=== PATIENT | female | born 1990 | race Caucasian/White ===

== ENCOUNTER 2016-06-13 08:18 | Emergency (ER) | payer MEDICAID ==
[~2016-06-13] VITALS: Wt 63.2 kg
[2016-06-13 08:58] LABS: ADD SCAN DIFF NO
[2016-06-13 09:03] LABS: BASOPHILS % 0.3 % (0.0-2.0); EOSINOPHILS # 0.1 10^3/ul (0.0-0.5); EOSINOPHILS % 1.2 % (0.0-7.0); HEMATOCRIT 37.7 % (37.0-47.0); HEMOGLOBIN 12.9 g/dl (12.0-16.0); LYMPHOCYTES # 2.4 10^3/ul (0.8-2.9); LYMPHOCYTES % 22.8 % (15.0-51.0); MEAN CORPUSCULAR HEMOGLOBIN 30.6 pg (29.0-33.0); MEAN CORPUSCULAR HGB CONC 34.2 g/dl (32.0-37.0); MEAN CORPUSCULAR VOLUME 89.5 fl (82.0-101.0); MEAN PLATELET VOLUME 10.3 fl (7.4-10.4); MONOCYTE # 0.7 10^3/ul (0.3-0.9); MONOCYTES % 6.9 % (0.0-11.0); NEUTROPHIL # 7.3 10^3/ul (1.6-7.5); NEUTROPHILS % 68.4 % (39.0-77.0); PLATELET COUNT 253 10^3/UL (140-415); RED BLOOD COUNT 4.21 10^6/ul (4.20-5.40); RED CELL DISTRIBUTION WIDTH 11.9 % (11.5-14.5); WHITE BLOOD COUNT 10.6 10^3/ul (4.8-10.8)
--- NOTE | 2016-06-13 09:23 | RADRPT ---
PROCEDURE: OBSTETRICAL ULTRASOUND WITH ENDOVAGINAL IMAGES CLINICAL INDICATION: Vaginal Bleed () TECHNIQUE: Multiple sonographic images of the pelvis were obtained utilizing a transabdominal and endovaginal technique. The images were reviewed on a PACS workstation. COMPARISON: None. LMP: 04/25/2016 FINDINGS: There is a single live intrauterine with heart rate of 129 beats per minute, mean sa c diameter of 2.00 cm, yolk sac, and crown-rump length of 0.62 cm which is consistent with a gestati onal age of 6 weeks, 5 days . The estimated date of delivery by ultrasound is 02/01/2017 . The estimated gestational age by LMP is 7 weeks, 0 days . The estimated date of delivery by LMP is 01/30/2017 . The right ovary measures 6.2 x 4.6 x 4.5 cm. The left ovary measures 2.3 x 1.4 x 1.8 cm. There is no rmal vascular flow in both ovaries. There is a 4.4 cm cystic lesion in the right ovary without significant peripheral vascular flow. There is mild pelvic free fluid. IMPRESSION: Single live intrauterine consistent with a gestational age of 6 weeks, 5 days . The estimated date of delivery is 02/01/2017 . Dating by ultrasound is within 2 days of dating by LMP. 4.4 cm cystic lesion in the right ovary is nonspecific and may be an enlarged follicle or hemorrhagi c/corpus luteal cyst. No subchorionic hemorrhages are identified. RPTAT: EE Physician Aramis Date Time Electronically viewed and signed by Physician Aramis on 06/13/2016 09:23 /
[2016-06-13 09:26] LABS: ADD UMIC YES; URINE BILIRUBIN (Dip) NEGATIVE (NEGATIVE); URINE BLOOD (Dip) 3+ (NEGATIVE); URINE COLOR LT. YELLOW (YELLOW); URINE GLUCOSE (Dip) NEGATIVE (NEGATIVE); URINE KETONES (Dip) NEGATIVE (NEGATIVE); URINE LEUKOCYTE ESTERASE (Dip) 2+ (NEGATIVE); URINE NITRITE (Dip) NEGATIVE (NEGATIVE); URINE TOTAL PROTEIN (Dip) NEGATIVE (NEGATIVE); URINE UROBILINOGEN (Dip) 0.2 E.U./dL (0.1-1.0)
[2016-06-13 09:36] LABS: BACTERIA,URINE MODERATE
[2016-06-13] MEDS ORDERED: NITR-58 PO (10:16)
--- NOTE | 2016-06-13 13:44 | ERD ---
ER Documentation Chief Complaint Date/Time DATE: 06/13/16 TIME: 13:42 Chief Complaint vag bleed since last night. llq abd pain and dysuria 6 wks preg HPI This is a 25-year-old female presents to the ER with vaginal bleeding that started last night. Patient is currently 6 weeks . A0. Patient is also complaining of left lower quadrant abdominal pain with dysuria. She denies any fevers or chills. She denies any flank pain. She denies any nausea vomiting or diarrhea. She denies any vaginal discharge. ROS 12 point review of systems was done, all negative except per HPI. Medications Home Meds Active Scripts Nitrofurantoin Monohyd Macrocr* (Macrobid*) 100 Mg Capsr, 100 MG PO BID for 7 Days, CAP Prov:BASIL BARBOSA 06/13/16 Allergies Allergies: Coded Allergies: No Known Allergy (Unverified , 05/18/13) PMhx/Soc Medical and Surgical Hx: pt denies Medical Hx, pt denies Surgical Hx Hx Alcohol Use: No Hx Substance Use: No Hx Tobacco Use: No Smoking Status: Never smoker Physical Exam Vitals Vital Signs Date Time Temp Pulse Resp B/P Pulse Ox O2 Delivery O2 Flow Rate FiO2 06/13/16 08:22 97.8 75 21 109/57 98 Physical Exam GENERAL: The patient is well developed and appropriate for usual state of health , in no apparent distress. HEENT: Atraumatic CHEST: Clear to auscultation bilaterally. There are no rales, wheezes or rhonchi. HEART: Regular rate and rhythm. No murmurs, clicks, rubs or gallops. ABDOMEN: Soft, nontender and nondistended. Good bowel sounds. No rebound or guarding. No gross peritonitis. No gross organomegaly or masses. No Corona sign or McBurney point tenderness. BACK: No midline or flank tenderness. NEURO: Alert and oriented. SKIN: The skin is warm and dry. Result Diagram: 06/13/16 0840 Results 24 hrs Laboratory Tests Test 06/13/16 08:40 06/13/16 08:45 White Blood Count 10.610^3/ul Red Blood Count 4.2110^6/ul Hemoglobin 12.9g/dl Hematocrit 37.7% Mean Corpuscular Volume 89.5fl Mean Corpuscular Hemoglobin 30.6pg Mean Corpuscular Hemoglobin Concent 34.2g/dl Red Cell Distribution Width 11.9% Platelet Count 72078^3/UL Mean Platelet Volume 10.3fl Neutrophils % 68.4% Lymphocytes % 22.8% Monocytes % 6.9% Eosinophils % 1.2% Basophils % 0.3% Nucleated Red Blood Cells % 0.0/100WBC Neutrophils # 7.310^3/ul Lymphocytes # 2.410^3/ul Monocytes # 0.710^3/ul Eosinophils # 0.110^3/ul Basophils # 0.010^3/ul Nucleated Red Blood Cells # 0.010^3/ul Beta HCG, Quantitative 65262.0mIU/ml Urine Color LT. YELLOW Urine Clarity CLEAR Urine pH 8.0 Urine Specific [place] 1.015 Urine Ketones NEGATIVE Urine Nitrite NEGATIVE Urine Bilirubin NEGATIVE Urine Urobilinogen 0.2 E.U./dL Urine Leukocyte Esterase 2+ Urine Microscopic RBC 2-5/HPF Urine Microscopic WBC 2-5/HPF Urine Epithelial Cells MODERATE Urine Bacteria MODERATE Urine Hemoglobin 3+ Urine Glucose NEGATIVE% Urine Total Protein NEGATIVE Procedures/MDM Differential diagnosis: Threatened , missed , incomplete , ectopic , molar , UTI, pyelonephritis: This is a 25- year-old female presents to the ER with vaginal bleeding. Patient does have a urinary tract infection she will be sent home with Macrobid. In regards to patient's bleeding she does have a cyst which may be hemorrhagic. At this time IUP appears to be normal. Patient needs to follow-up with her AB INITIO ETL DEVELOPER within 48 hours. Patient is blood type O positive and does not need RhoGam. Patient needs return to ER sooner if symptoms worsen. My medical decision making was shared with the patient she understands and agrees with plan. Departure Diagnosis: Primary Impression: UTI (urinary tract infection) Condition: Stable Patient Instructions: Understanding Urinary Tract Infections (UTIs) Additional Instructions: Llame al doctor MAANA y thony fabiola SHIVAM PARA DENTRO DE 1-2 LOWE.Dgale a la secretaria que nosotros le instruimos hacer esta shivam.Avise o llame si cardozo condicin se empeora antes de la shivam. Regresa aqui si peor o no mejor. BASIL BARBOSA June 13, 2016 13:44
== END 2016-06-13 10:30 | disposition home or self-care (01) ==
LOC: FTE 08:18
DX: O23.41 Unspecified infection of urinary tract in pregnancy, first trimester (principal); Z3A.01 Less than 8 weeks gestation of pregnancy
CPT/HCPCS: 36415; 76801; 76817; 81001; 81003; 84702; 85025; 86900; 86901

== ENCOUNTER 2016-06-16 19:01 | Emergency (ER) | payer MEDICAID ==
[~2016-06-16] VITALS: Ht 154.9 cm; Wt 63.0 kg
[~2016-06-16 19:01] MED LIST: NITR-58 PO
[2016-06-16 19:29] VITALS: Ht 154.9 cm; Wt 63.0 kg
[2016-06-16] MEDS ORDERED: SOD CHLORIDE 0.9% 1,000 ML IV STA (20:58)
[2016-06-16] MEDS ORDERED: METOCLOPRAMIDE 10 MG INJ IV ONE (21:00)
[2016-06-16 21:18] LABS: ADD UMIC YES; URINE BILIRUBIN (Dip) NEGATIVE (NEGATIVE); URINE BLOOD (Dip) 3+ (NEGATIVE); URINE COLOR LT. YELLOW (YELLOW); URINE GLUCOSE (Dip) NEGATIVE (NEGATIVE); URINE KETONES (Dip) NEGATIVE (NEGATIVE); URINE LEUKOCYTE ESTERASE (Dip) TRACE (NEGATIVE); URINE NITRITE (Dip) NEGATIVE (NEGATIVE); URINE TOTAL PROTEIN (Dip) NEGATIVE (NEGATIVE); URINE UROBILINOGEN (Dip) 0.2 E.U./dL (0.1-1.0)
[2016-06-16 21:32] LABS: BACTERIA,URINE MODERATE; SQUAMOUS EPITHELIAL CELL,UR MODERATE
[2016-06-16 21:43] LABS: ADD SCAN DIFF NO; BASOPHIL # 0.1 10^3/ul (0.0-0.1); BASOPHILS % 0.4 % (0.0-2.0); EOSINOPHILS # 0.1 10^3/ul (0.0-0.5); EOSINOPHILS % 0.8 % (0.0-7.0); HEMATOCRIT 37.7 % (37.0-47.0); HEMOGLOBIN 12.8 g/dl (12.0-16.0); LYMPHOCYTES # 3.7 10^3/ul (0.8-2.9); LYMPHOCYTES % 22.4 % (15.0-51.0); MEAN CORPUSCULAR VOLUME 91.3 fl (82.0-101.0); MEAN PLATELET VOLUME 10.5 fl (7.4-10.4); MONOCYTE # 1.3 10^3/ul (0.3-0.9); NEUTROPHIL # 11.2 10^3/ul (1.6-7.5); PLATELET COUNT 261 10^3/UL (140-415); RED BLOOD COUNT 4.13 10^6/ul (4.20-5.40); RED CELL DISTRIBUTION WIDTH 11.6 % (11.5-14.5); WHITE BLOOD COUNT 16.4 10^3/ul (4.8-10.8)
--- NOTE | 2016-06-16 22:05 | RADRPT ---
PROCEDURE: US OB. CLINICAL INDICATION: Vaginal bleeding TECHNIQUE: Transabdominal and transvaginal views of the pelvis are available for review. COMPARISON: 06/13/16 FINDINGS: There is a single intrauterine gestation with the crown-rump length measuring 1.1 cm, corresponding to a gestational age of 7 weeks and 1 day. The heart rate is noted at 144 bpm. There are multiple small hypoechoic areas adjacent to the gestational sac. There is a small amount of free fluid in the pelvis and adjacent to the head next. The right ovary is enlarged measuring 5.9 x 4.6 cm. There is a large 5.1 cm cyst in the right ovary . The left ovary measures 3.2 x 1.4 cm. There is normal Doppler flow in the ovaries. RPTAT: AA IMPRESSION: Single live intrauterine with an estimated gestational age of 7 weeks and 1 day, based on ultrasound measurements. Multiple new small areas of subchorionic hemorrhage. Large a 5.1 cm cyst in the right ovary with a small amount of free fluid. .Ki Schmidt MD, Date Time Electronically viewed and signed by .Ki Schmidt MD, on 06/16/2016 22:05 .S/
[2016-06-16 22:07] LABS: ALBUMIN 4.7 g/dl (3.3-4.9); ALBUMIN/GLOBULIN RATIO 1.51; BILIRUBIN,INDIRECT 0.3 mg/dl (0-1.1); BILIRUBIN,TOTAL 0.3 mg/dl (0.2-1.3); CALCIUM 9.5 mg/dl (8.4-10.2); CREATININE 0.42 mg/dl (0.44-1.00); POTASSIUM 3.6 mmol/L (3.5-5.1); TOTAL PROTEIN 7.8 g/dl (6.1-8.1)
[2016-06-16] MEDS ORDERED: ACET325T33 PO (23:05)
[2016-06-16] MEDS ORDERED: METO10TA92 PO (23:05)
--- NOTE | 2016-06-16 23:12 | ERD ---
ER Documentation Chief Complaint Date/Time DATE: 06/16/16 TIME: 23:09 Chief Complaint VAG BLEED SINCE THURSDAY 7WEEKS HPI 25-year-old female patient who is a presents to the ED complaining of vaginal bleeding that started 4 days ago and worsened in the last 2 days with blood clots. Reports that her last menses was on April 25, 2016. States that she has had to change at least 2 pads per day for the vaginal bleeding. Patient was seen here on June 13, 2016 for similar symptoms and was diagnosed with a urinary tract infection. Patient states that she has been taking her Macrobid without any interruption. Denies any fever, abdominal pain, chills, cough, rhinorrhea, chest pain, vaginal discharge, shortness of breath, diarrhea , constipation. ROS All systems reviewed and are negative except as per history of present illness. Medications Home Meds Active Scripts Acetaminophen* (Tylenol*) 325 Mg Tablet, 1 TAB PO Q6 Y for PAIN AND OR ELEVATED TEMP, #20 TAB Prov:JOAQUIN RUCKER PA-C 06/16/16 Metoclopramide* (Reglan*) 10 Mg Tablet, 10 MG PO Q6 Y for NAUSEA AND/OR VOMITING , #10 TAB Prov:JOAQUIN RUCKER PA-C 06/16/16 Nitrofurantoin Monohyd Macrocr* (Macrobid*) 100 Mg Capsr, 100 MG PO BID for 7 Days, CAP Prov:BASIL BARBOSA 06/13/16 Allergies Allergies: Coded Allergies: No Known Allergy (Unverified , 06/16/16) PMhx/Soc Medical and Surgical Hx: pt denies Medical Hx, pt denies Surgical Hx Hx Alcohol Use: No Hx Substance Use: No Hx Tobacco Use: No Smoking Status: Never smoker Physical Exam Vitals Vital Signs Date Time Temp Pulse Resp B/P Pulse Ox O2 Delivery O2 Flow Rate FiO2 06/16/16 23:45 98.1 78 18 105/61 100 06/16/16 19:29 97.7 77 18 100/56 100 Physical Exam Const: Stu-sbg-kfqulcusu, well-nourished. In no acute distress. Head: Atraumatic, normocephalic Eyes: Normal Conjunctiva without injection. No purulent discharge. ENT: Normal external ear, nose. Moist oropharynx without tonsillar exudates. Non -erythematous pharynx. Uvula midline. No drooling. No trismus. Neck: No cervical midline tenderness. Full range of motion. No meningismus. No cervical lymphadenopathy. No JVD. Resp: Clear to auscultation bilaterally. No wheezing, rhonchi, rales, or crackles. No accessory muscle use. No retractions. Cardio: Regular rate and rhythm. No murmurs, rubs or gallops. Abd: Soft, nontender to palpation, non distended. Normal bowel sounds. No palpable masses. No rebound tenderness. No guarding. Negative McBurney's point. Negative psoas sign. Negative obturator sign. Skin: No petechiae or rashes Back: No midline tenderness. No CVA tenderness. Ext: No cyanosis, or edema. Neur: Awake and alert. Normal gait. Normal coordination. Psych: Normal Mood and Affect Result Diagram: 06/16/16210706/16/162107 Results 24 hrs Laboratory Tests Test 06/16/16 21:05 06/16/16 21:08 Urine Color LT. YELLOW Urine Clarity SLIGHTLY CLOUDY Urine pH 6.0 Urine Specific [place] 1.010 Urine Ketones NEGATIVE Urine Nitrite NEGATIVE Urine Bilirubin NEGATIVE Urine Urobilinogen 0.2 E.U./dL Urine Leukocyte Esterase TRACE Urine Microscopic RBC 2-5/HPF Urine Microscopic WBC 5-10/HPF Urine Squamous Epithelial Cells MODERATE Urine Bacteria MODERATE Urine Hemoglobin 3+ Urine Glucose NEGATIVE% Urine Total Protein NEGATIVE White Blood Count 16.410^3/ul Red Blood Count 4.1310^6/ul Hemoglobin 12.8g/dl Hematocrit 37.7% Mean Corpuscular Volume 91.3fl Mean Corpuscular Hemoglobin 31.0pg Mean Corpuscular Hemoglobin Concent 34.0g/dl Red Cell Distribution Width 11.6% Platelet Count 19718^3/UL Mean Platelet Volume 10.5fl Neutrophils % 68.0% Lymphocytes % 22.4% Monocytes % 8.0% Eosinophils % 0.8% Basophils % 0.4% Nucleated Red Blood Cells % 0.0/100WBC Neutrophils # 11.210^3/ul Lymphocytes # 3.710^3/ul Monocytes # 1.310^3/ul Eosinophils # 0.110^3/ul Basophils # 0.110^3/ul Nucleated Red Blood Cells # 0.010^3/ul Sodium Level 135mmol/L Potassium Level 3.6mmol/L Chloride Level 102mmol/L Carbon Dioxide Level 25mmol/L Anion Gap 12 Blood Urea Nitrogen 3mg/dl Creatinine 0.42mg/dl Glucose Level 80mg/dl Calcium Level 9.5mg/dl Total Bilirubin 0.3mg/dl Direct Bilirubin 0.00mg/dl Indirect Bilirubin 0.3mg/dl Aspartate Amino Transf (AST/SGOT) 27IU/L Alanine Aminotransferase (ALT/SGPT) 53IU/L Alkaline Phosphatase 66IU/L Total Protein 7.8g/dl Albumin 4.7g/dl Globulin 3.10g/dl Albumin/Globulin Ratio 1.51 Beta HCG, Quantitative 780384.0mIU/ml Current Medications Medications (Trade) Dose Ordered Sig/Johana Route PRN Reason Start Time Stop Time Status Last Admin Dose Admin Sodium Chloride (NS) 1,000 ml @ 1,000 mls/hr Q1H STAT IV 06/16/16 20:58 06/16/16 21:57 DC 06/16/16 21:10 Metoclopramide HCl (Reglan) 10 mg ONCE ONCE IV 06/16/16 21:00 06/16/16 21:01 DC 06/16/16 21:09 Procedures/MDM 25-year-old female patient who is a presents the ED complaining of vaginal bleeding that started 4 days ago and worsened in last 2 days. Patient is afebrile and nontoxic-appearing. Patient's normal vital signs. An ultrasound , beta-hCG, CBC, type and RH, UA was ordered to evaluate patient. CBC: No evidence of severe infection or anemia Urine: No elevation in nitrites, leukocyte esterase, hematuria. No evidence of UTI Rh: O positive. No indication for Rhogam at this time. beta Hc,393 on June 13, 2016 has increased to 135,000 PROCEDURE: US OB. CLINICAL INDICATION: Vaginal bleeding TECHNIQUE: Transabdominal and transvaginal views of the pelvis are available for review. COMPARISON: 06/13/16 FINDINGS: There is a single intrauterine gestation with the crown-rump length measuring 1.1 cm, corresponding to a gestational age of 7 weeks and 1 day. The heart rate is noted at 144 bpm. There are multiple small hypoechoic areas adjacent to the gestational sac. There is a small amount of free fluid in the pelvis and adjacent to the head next. The right ovary is enlarged measuring 5.9 x 4.6 cm. There is a large 5.1 cm cyst in the right ovary. The left ovary measures 3.2 x 1.4 cm. There is normal Doppler flow in the ovaries. RPTAT: AA IMPRESSION: Single live intrauterine with an estimated gestational age of 7 weeks and 1 day, based on ultrasound measurements. Multiple new small areas of subchorionic hemorrhage. Large a 5.1 cm cyst in the right ovary with a small amount of free fluid. Patient has a single live intrauterine estimated to be 7 weeks and 1 day. Multiple new small areas of subchorionic hemorrhage likely the cause of patient's vaginal bleeding during the . She also has a 5 cm cyst on the right ovary. Patient's bleeding symptoms have stabilized while in the department. Low suspicion for symptomatic anemia, ectopic , sepsis, PID, appendicitis, ovarian torsion, tubo-ovarian abscess, surgical abdomen, or other emergent conditions. Patient was educated that there is a risk for threatened . Discharge medications: Tylenol, Reglan. Continue taking Macrobid. Patient to follow up with CLINICAL RESEARCH NURSE COORDINATOR in 2 days for further evaluation and treatment. Patient is to return sooner to the ED for any worsening symptoms. Patient's questions were answered. Patient understood and agreed with discharge plan. Departure Diagnosis: Primary Impression: Vaginal bleeding in patient at less than 20 weeks ges... Additional Impression: Nausea and vomiting during Condition: Stable Patient Instructions: Bleeding During Early , Hyperemesis Gravidarum Referrals: [facility] () [place] se salas hecho un examen mdico de control que le indica que no est en fabiola condicin que requiera tratamiento urgente en el Departamento de Emergencia. Un estudio ms profundo y el tratamiento de cardozo condicin pueden esperar sin ningn riesgo hasta que usted sea atendida/o en el consultorio de cardozo mdico o fabiola cl landry. Es responsabilidad suya arreglar fabiola shivam para el seguimiento del jaylon. MANEJO DE CONDICIONES NO URGENTES EN EL FUTURO 1) Si usted tiene un mdico de atencin primaria: Usted debera llamar a cardozo mdico de atencin primaria antes de venir al departamento de emergencia. Despus de las horas de consultorio, cardozo doctor o cardozo asociado/a est disponible por telfono. El mdico o enfermero de tracie en el servicio telefnico puede asesorarle por mariela medio para atender el problema, o jaylon contrario se puede programar fabiola shivam. 2) Si usted no tiene un mdico de atencin primaria: Llame al mdico o clnica de referencia que aparece abajo kamala las horas de consultorio para hacer fabiola shivam para que le vean. CLINICAS: [facility] [phone] [facility] [phone] [facility] [phone] [facility] [place] [phone] [facility] [phone] [address] [facility]. [phone] [facility] () Usted se salas hecho un examen mdico de control que le indica que no est en fabiola condicin que requiera tratamiento urgente en el Departamento de Emergencia. Un estudio ms profundo y el tratamiento de cardozo condicin pueden esperar sin ningn riesgo hasta que usted sea atendida/o en el consultorio de cardozo mdico o fabiola cl landry. Es responsabilidad suya arreglar fabiola shivam para el seguimiento del jaylon. MANEJO DE CONDICIONES NO URGENTES EN EL FUTURO 1) Si usted tiene un mdico de atencin primaria: Usted debera llamar a cardozo mdico de atencin primaria antes de venir al departamento de emergencia. Despus de las horas de consultorio, cardozo doctor o cardozo asociado/a est disponible por telfono. El mdico o enfermero de tracie en el servicio telefnico puede asesorarle por mariela medio para atender el problema, o jaylon contrario se puede programar fabiola shivam. 2) Si usted no tiene un mdico de atencin primaria: Llame al mdico o condado institucions de referencia que aparece abajo kamala las horas de consultorio para hacer fabiola shivam para que le vean. SI USTED NO PUEDE PAGAR PARA KLARISSA UN MEDICO puede ir a: [facility] [address] [place] [address] [facility] [address] [place] [address] [facility] [address] [place] [address] [facility] [address] [place], [place] [phone] CLINICAL RESEARCH NURSE COORDIN[place] [address] [facility] [address] [place], [place] [phone] OFFICE FAX QASIM HENDRICKS [address] [place], [place] [phone] DR. QUINN MARQUEZ [address] [place], [place] [phone] ASHLEE GILANKIT [id number] [address] [facility], [address] [place] [address] RICHARD DOAN [address] [place] [phone] [facility] [address] [place] [address] [facility] [phone] - [address], [place] [address] [address] WRIGHT, CHRISTOS [address] [facility] [address], [place] [address] DR MAYA, FARID [address] [facility] [place] [address] [facility] Hours: 8:00 am - 5:00 pm Additional Instructions: Llame al obstetrica doctor MAANA y thony fabiola SHIVAM PARA DENTRO DE 2-3 LOWE.D gale a la secretaria que nosotros le instruimos hacer esta shivam.Avise o llame si cardozo condicin se empeora antes de la shivam. Regresa aqui si peor o no mejor. JOAQUIN RUCKER PA-C June 16, 2016 23:12
[2016-06-16 23:45] VITALS: BP 105/61; PULSE 78; RESP 18; TEMP 98.1
== END 2016-06-17 | disposition home or self-care (01) ==
LOC: FTE 19:01
DX: O20.9 Hemorrhage in early pregnancy, unspecified (principal); O21.9 Vomiting of pregnancy, unspecified; Z3A.01 Less than 8 weeks gestation of pregnancy
CPT/HCPCS: 36415; 76801; 76817; 80053; 81001; 84702; 85025; 86900; 86901; 96374; J2765; J7030; Z7502; 81003

== ENCOUNTER 2016-10-04 17:24 | Outpatient (CLI) | payer MEDICAID ==
[~2016-10-04] VITALS: Ht 152.4 cm; Wt 66.6 kg
[~2016-10-04 17:24] MED LIST changes: +ACET325T33 PO; +ACET500C5 PO; +AZIT250T94 PO; +D-ME473S18 PO; +METO10TA92 PO
[2016-10-04 19:01] VITALS: BP 110/63; PULSE 76; RESP 20
[2016-10-04 19:22] VITALS: Ht 152.4 cm; Wt 66.6 kg
[2016-10-04] MEDS ORDERED: PRENAT PO (19:24)
[2016-10-04] MEDS ORDERED: DOCO100C PO (19:24)
[2016-10-04 20:10] LABS: ADD UMIC YES; UR ASCORBIC ACID NEGATIVE (NEGATIVE); UR BILIRUBIN (Dip) NEGATIVE (NEGATIVE); UR BLOOD (Dip) 2+ mg/dL (NEGATIVE); UR CLARITY CLEAR (CLEAR); UR COLOR STRAW (YELLOW); UR GLUCOSE (Dip) NEGATIVE (NEGATIVE); UR KETONES (Dip) NEGATIVE (NEGATIVE); UR LEUKOCYTE ESTERASE (Dip) 3+ Leu/ul (NEGATIVE); UR NITRITE (Dip) NEGATIVE (NEGATIVE); UR RBC 0 /HPF (0-5); UR SPECIFIC GRAVITY (Dip) 1.001 (1.003-1.030); UR TOTAL PROTEIN (Dip) NEGATIVE (NEGATIVE); UR UROBILINOGEN (Dip) NEGATIVE (NEGATIVE)
--- NOTE | 2016-10-04 20:36 | RADRPT ---
PROCEDURE: Obstetrical ultrasound CLINICAL INDICATION: . OB ultrasound with fluid volume assessment. TECHNIQUE: Obstetrical ultrasound of the uterus for fluid volume assessment. Transabdomi nal imaging of the uterus was performed. COMPARISON: 09/15/2016 FINDINGS: The amniotic fluid index equals approximately 12.0 cm. heart rate: 139 Beats per minute. Presentation: Breech Placenta is posterior without evidence of abruption. IMPRESSION: Amniotic fluid index equals 12.0 cm. Breech presentation. No evidence of abruption is seen. RPTAT: AADD .Dante Lovelace MD, Date Time Electronically viewed and signed by .Dante Lovelace MD, on 10/04/2016 20:36 .B/
--- NOTE | 2016-10-04 21:08 | PN ---
Triage Information Date/Time Reason for visit: Postcoital bleeding Weeks of Gestation Patient is a 23 weeks of gestation who presents with postcoital bleeding /Para Diabetes: none Hypertention: none Objective Vital Signs Date Time Temp Pulse Resp B/P Pulse Ox O2 Delivery O2 Flow Rate FiO2 10/04/16 19:01 98.7 76 20 110/63 Room Air Results/Medications Results 24 hrs Laboratory Tests Test 10/04/16 19:00 Urine Color STRAW Urine Clarity CLEAR Urine pH 7.0 Urine Specific [place] 1.001 L Urine Ketones NEGATIVE Urine Nitrite NEGATIVE Urine Bilirubin NEGATIVE Urine Urobilinogen NEGATIVE Urine Leukocyte Esterase 3+ H Urine Microscopic RBC 0 Urine Microscopic WBC 1 Urine Hemoglobin 2+ H Urine Glucose NEGATIVE Urine Total Protein NEGATIVE Imaging Results PROCEDURE: Obstetrical ultrasound CLINICAL INDICATION: . OB ultrasound with fluid volume assessment. TECHNIQUE: Obstetrical ultrasound of the uterus for fluid volume assessment. Transabdominal imaging of the uterus was performed. COMPARISON: 09/15/2016 FINDINGS: The amniotic fluid index equals approximately 12.0 cm. heart rate: 139 Beats per minute. Presentation: Breech Placenta is posterior without evidence of abruption. IMPRESSION: Amniotic fluid index equals 12.0 cm. Breech presentation. No evidence of abruption is seen. RPTAT: AADD .Dante Lovelace MD, MD Date Time Electronically viewed and signed by .Dante Lovelace MD, on 10/04/2016 20:36 .B/ CC: NATHAN CHEN MD Disposition: Discharge Assessment/Plan UA +3+ leukocyte Prescription for Macrobid was given Patient was instructed to follow-up with her ENGINE MANAGER in 2-3 days NATHAN CHEN MD Oct 04, 2016 21:08
--- NOTE | 2016-10-05 02:42 | TRIAGE ---
OB Triage Datetime Report Generated by CPN: 10/05/2016 02:42 Datetime: 10/04/2016 21:37 Stage of : OB Triage Temperature Route: Oral Labor Evaluation Frequency: None noted or palpated Monitor Mode: External Resting Tone Kenner: Relaxed Comments: Pt reports positive movt. Pain Assessment Pain Scale: 0 Pain Presence: None/Denies Pain Type: N/A Datetime: 10/04/2016 21:20 Stage of : OB Triage Datetime: 10/04/2016 21:00 Stage of : OB Triage Labor Evaluation Frequency: None noted or palpated Monitor Mode: External Resting Tone Kenner: Relaxed Datetime: 10/04/2016 20:00 Stage of : OB Triage Labor Evaluation Frequency: None noted or palpated Monitor Mode: External Resting Tone Kenner: Relaxed Datetime: 10/04/2016 19:17 Assessment Type: Triage Maternal Assessment Level of Consciousness: Fully Conscious DTR's/Clonus: DTRs 2+; No Clonus Headache: Denies Blurred Vision: No Respiratory Effort: Unlabored; Regular Rhythm; Equal Expansion Breath Sounds, Left: Clear and Equal Breath Sounds, Right: Clear and Equal Nausea/Vomiting: Denies RUQ Epigastric Pain: Denies Lower Extremities Edema: None Degree: None Upper Extremities Edema: None Degree: None Facial Edema: None Fall Risk Assessment History of Falling: (0) No Secondary Diagnosis: (0) No Ambulatory Aid: (0) Bedrest/Nurse Assist IV Therapy: (0) No Gait: (0) Normal/Bedrest/Immobile Mental Status: (0) Oriented to Own Ability Fall Score: 0 Fall Risk Score Definition: No Risk: No action required Datetime: 10/04/2016 19:15 Stage of : OB Triage Datetime: 10/04/2016 19:13 Stage of : OB Triage Datetime: 10/04/2016 18:40 Labor Evaluation Frequency: 0 Monitor Mode: External Resting Tone Kenner: Relaxed Heart Rate FHR Baseline Rate: 140 Monitor Mode: External US Datetime: 10/04/2016 18:26 Stage of : OB Triage Assessment Type: Triage Maternal Assessment Level of Consciousness: Fully Conscious DTR's/Clonus: DTRs 2+; No Clonus Headache: Denies Blurred Vision: No Respiratory Effort: Unlabored; Regular Rhythm Breath Sounds, Left: Clear and Equal Breath Sounds, Right: Clear and Equal Nausea/Vomiting: Denies RUQ Epigastric Pain: Denies Lower Extremities Edema: None Degree: None Upper Extremities Edema: None Degree: None Facial Edema: None Temperature Route: Oral Fall Risk Assessment History of Falling: (0) No Secondary Diagnosis: (0) No Ambulatory Aid: (0) Bedrest/Nurse Assist IV Therapy: (0) No Gait: (0) Normal/Bedrest/Immobile Mental Status: (0) Oriented to Own Ability Fall Score: 0 Fall Risk Score Definition: No Risk: No action required Labor Evaluation Frequency: 0 Monitor Mode: External Pattern: Normal: <= 5 Contractions in 10 Minutes Resting Tone Kenner: Relaxed Heart Rate FHR Baseline Rate: 130 Monitor Mode: External US FHR Baseline Changes: No Baseline Change Variability: Moderate 6-25 bpm Decelerations: None Category: Category I (Annotations: EGA 23 WKS) Datetime: 10/04/2016 18:24 Time of Arrival: 10/04/2016 17:15 EGA: 23.1 Chief Complaint: PT HAD VAGINAL BLEDING POST SEXUAL INTERCOURSE AT6 AM TODAY AND NOTICED SOME BLOO D Movement: Present Contractions: Denies/Absent Rupture of Membranes: Denies Vaginal Discharge: Denies Recent Sexual Intercouse: Yes Abdominal Trauma: Not Applicable Patient Complaints: Other Time Provider Notified: 10/04/2016 19:13 Provider Notified: Initial Plan: EFRosendo,V/S
== END 2016-10-04 21:43 | disposition home or self-care (01) ==
LOC: OBT 17:24 → L-D 17:25 → OBT 21:43
PROVIDERS: ATTEND Obstetrics & Gynecology
DX: O46.8X2 Other antepartum hemorrhage, second trimester (principal); Z3A.23 23 weeks gestation of pregnancy
CPT/HCPCS: 76815; 81001; G0463

== ENCOUNTER 2016-11-25 16:05 | Outpatient (CLI) | payer MEDICAID ==
[~2016-11-25] VITALS: Ht 152.4 cm; Wt 69.1 kg
[~2016-11-25 16:05] MED LIST changes: -ACET325T33 PO; -ACET500C5 PO; -AZIT250T94 PO; -D-ME473S18 PO; +DOCO100C PO; -METO10TA92 PO; -NITR-58 PO; +PRENAT PO
[2016-11-25 18:17] VITALS: BP 102/66; PULSE 80; RESP 18
[2016-11-25] MEDS ORDERED: FERR256T PO (18:19)
[2016-11-25] MEDS ORDERED: FOL8 PO (18:19)
--- NOTE | 2016-11-25 18:19 | RADRPT ---
PROCEDURE: US OB biophysical profile. Ultrasound cervix CLINICAL INDICATION: decreased movements, leaking fluid TECHNIQUE: Multiple sonographic images of the pelvis were obtained. In addition, transvaginal matthew ges of the cervix were obtained. The images were reviewed on a PACS workstation. COMPARISON: US PELVIS 10/04/2016 FINDINGS: There is a single viable intrauterine gestation. Cardiac activity is present with 139 beats per min jon. There is a breech, head is maternal left presentation. The placenta is posterior. There is no evidence of placental abruption. There is a normal amount of amniotic fluid with an MIKE = 15.7 cm. The cervix measures 2.2 cm in length. Biophysical profile: movement 2/2 tone 2/2. breathing 2/2 MIKE 2/2 Total 09/16 RPTAT: AA . IMPRESSION: Normal biophysical profile. Cervix measures 2.2 cm in length. .Ki Schmidt MD, MD Date Time Electronically viewed and signed by .Ki Schmidt MD, MD on 11/25/2016 18:18 .S/
--- NOTE | 2016-11-25 18:58 | PN ---
Triage Information Date/Time Reason for visit: SROM Weeks of Gestation 30+ /Para 1/0 Diabetes: none Hypertention: none Objective Vital Signs Date Time Temp Pulse Resp B/P Pulse Ox O2 Delivery O2 Flow Rate FiO2 11/25/16 18:17 98.3 80 18 102/66 97 Room Air Heart Rate: 140's Contractions: None Results/Medications Results 24 hrs Laboratory Tests Test 11/25/16 17:40 Membranes Rupture NEGATIVE Fibronectin NEGATIVE Disposition: Discharge Assessment/Plan FFN neg ROM (-) CXL 2.2 Discharged with precautions Return in 2 days for CXL and BPP CARLEE WISEMAN M.D. Nov 25, 2016 18:58
--- NOTE | 2016-11-25 19:06 | TRIAGE ---
OB Triage Datetime Report Generated by CPN: 11/25/2016 19:05 Datetime: 11/25/2016 18:49 Labor Evaluation Frequency: 0 Monitor Mode: External Pattern: Normal: <= 5 Contractions in 10 Minutes Resting Tone [place]: Relaxed Heart Rate FHR Baseline Rate: 130 Monitor Mode: External US FHR Baseline Changes: No Baseline Change Variability: Moderate 6-25 bpm Accelerations: 15X15 Decelerations: None Datetime: 11/25/2016 18:01 Labor Evaluation Frequency: 0 Monitor Mode: External Pattern: Normal: <= 5 Contractions in 10 Minutes Resting Tone [place]: Relaxed Heart Rate FHR Baseline Rate: 125 Monitor Mode: External US FHR Baseline Changes: No Baseline Change Variability: Moderate 6-25 bpm Accelerations: 15X15 Decelerations: None Datetime: 11/25/2016 17:45 Vaginal Exam Dilatation (cms): 0.0 Effacement (%): 0 Station: -4 Exam By: CK Vaginal Bleeding: None Cervix, Consistency: Firm Cervix, Position: Midposition Presentation 'A': Unable to Assess Datetime: 11/25/2016 17:42 Nitrazine: Negative Datetime: 11/25/2016 17:01 Labor Evaluation Frequency: 0 Monitor Mode: External Pattern: Normal: <= 5 Contractions in 10 Minutes Resting Tone [place]: Relaxed Heart Rate FHR Baseline Rate: 125 Monitor Mode: External US FHR Baseline Changes: No Baseline Change Variability: Moderate 6-25 bpm Accelerations: 15X15 Decelerations: None Datetime: 11/25/2016 16:57 Time of Arrival: 11/25/2016 16:00 EGA: 30.4 Arrived By: Ambulatory Arrived From: Home Chief Complaint: LEAKING OF FLUIDS -STARTED ON THURSDAY, PT WORE A PAD ON THURSDAY AND THURSDAY, BUT D ID NOT NEED ONE TODAY Movement: Present Contractions: Denies/Absent Rupture of Membranes: Unsure Vaginal Bleeding: Normal Show Vaginal Discharge: Denies Recent Sexual Intercouse: Denies Abdominal Trauma: Not Applicable Patient Complaints: None Time Provider Notified: 11/25/2016 17:20 Provider Notified: DR. SERRANO Initial Plan: EFM x2 Datetime: 11/25/2016 16:38 Stage of : OB Triage Assessment Type: Triage Maternal Assessment Level of Consciousness: Fully Conscious Headache: Denies Blurred Vision: No Respiratory Effort: Unlabored; Regular Rhythm; Equal Expansion Breath Sounds, Left: Clear and Equal Breath Sounds, Right: Clear and Equal Nausea/Vomiting: Denies RUQ Epigastric Pain: Denies Lower Extremities Edema: None Degree: None Upper Extremities Edema: None Degree: None Facial Edema: None Temperature Route: Oral Fall Risk Assessment History of Falling: (0) No Secondary Diagnosis: (0) No Ambulatory Aid: (0) Bedrest/Nurse Assist IV Therapy: (0) No Gait: (0) Normal/Bedrest/Immobile Mental Status: (0) Oriented to Own Ability Fall Score: 0 Fall Risk Score Definition: No Risk: No action required Pain Assessment Pain Scale: 0 Pain Presence: None/Denies Pain Type: N/A Datetime: 10/04/2016 19:17 Fall Score: 0 Fall Risk Score Definition: No Risk: No action required Datetime: 10/04/2016 18:26 Fall Score: 0 Fall Risk Score Definition: No Risk: No action required Datetime: 10/04/2016 18:24 EGA: 23.1
== END 2016-11-25 19:42 | disposition home or self-care (01) ==
LOC: OBT 16:05 → L-D 16:07 → OBT 19:42
PROVIDERS: ATTEND Obstetrics & Gynecology
DX: O42.913 Preterm premature rupture of membranes, unspecified as to length of time between rupture and onset of labor, third trimester (principal); Z3A.30 30 weeks gestation of pregnancy
CPT/HCPCS: 76817; 76818; 82731; 84112; Z7500; G0463

== ENCOUNTER 2016-11-27 16:42 | Outpatient (CLI) | payer MEDICAID ==
[~2016-11-27] VITALS: Ht 152.4 cm; Wt 70.6 kg
[~2016-11-27 16:42] MED LIST changes: +FERR256T PO; +FOL8 PO
[2016-11-27 16:53] VITALS: Ht 152.4 cm; Wt 70.6 kg
[2016-11-27 16:54] VITALS: BP 107/60; PULSE 83
--- NOTE | 2016-11-27 17:37 | RADRPT ---
PROCEDURE: US OB biophysical profile. CLINICAL INDICATION: evaluation TECHNIQUE: Multiple sonographic images of the pelvis were obtained. The images were reviewed on a PACS workstation. COMPARISON: No prior studies are available for comparison. FINDINGS: There is a single viable intrauterine gestation. Cardiac activity is present with 136 beats per min jon. There is a breech presentation. The placenta is posterior. There is no evidence of placental abruption. There is a normal amount of amniotic fluid with an MIKE = 12.2 cm. Biophysical profile: movement 2/2 tone 2/2. breathing 2/2 MIKE 2/2 Total 09/16 RPTAT: AA . IMPRESSION: Normal biophysical profile. Physician Aramis Date Time Electronically viewed and signed by Physician Aramis on 11/27/2016 17:37 RA/
--- NOTE | 2016-11-27 18:37 | CONS ---
Date/Time of Note Date/Time of Note DATE: 11/27/16 TIME: 18:27 Consultation Date/Type/Reason Admit Date/Time November 27, 2016 OB triage consult This patient is a 26 years old 1 para 0 with estimated date of confinement of January 30, 2017 which makes her 30 weeks and 6 days today. She returned to the clinic due to possibility of a rupture of membrane and to rule out labor On examination she is a well-developed well-nourished patient in her 31 week gestation her general vital signs are within normal limits with blood pressure of 107/60 , pulse rate of 83, respiration 18 and temperature 98.3,,. Abdomen is fairly soft . very rare contractions, heart tone is normal with good variability and occasional acceleration no decelerations. Constitutional: No chills, No diaphoresis, No disoriented, No febrile, No improved, No no complaints, No other, No poor po, No requiring IVF, No requiring O2 Eyes: No discharge, No no complaints, No other, No pain, No redness, No visual change ENT: No bleeding, No congestion, No discharge, No dysphagia, No no complaints, No other, No pain, No sore throat Respiratory: No cough, No no complaints, No other, No pain, No pleuritic pain, No shortness of breath, No sputum, No wheezing Cardiovascular: No chest pain, No edema, No lightheadedness, No no complaints, No orthopenea, No other, No palpitations, No paroxysmal nocturnal dyspnea Gastrointestinal: other (Due to lack of contractions pelvic examination was not performed), No blood, No constipation, No decreased appetite, No diarrhea, No flatus, No nausea, No no complaints, No pain, No passing stool, No vomiting Musculoskeletal: No back pain, No bone/joint pain, No neck pain, No no complaints, No other, No restricted range of motion, No swelling Skin: skin lesions (No erythema of the palm of the hand or any other parts of the body), No bruising, No erythema, No laceration, No no complaints, No other, No pruritis, No rash Neurologic: other (Knee-jerk reflexes are normal), No confusion, No dizziness, No focal-weakness, No headache, No no complaints , No seizure, No syncope Endocrine: No dry skin, No no complaints, No other, No polydypsia, No polyuria , No temp intolerance Additional Comments . We did an ultrasound study report was a single viable intrauterine gestation with cardiac activity 136 bpm in breech presentation placenta was posterior with no evidence of abruption her amniotic fluid index was 12.2 cm biophysical profile 09/16 With these finding patient was discharged home with instruction to continue doing kick count and return to the clinic if any evidence of labor ,low movement or any vaginal bleeding. End of dictation thank you Social History Smoking Status: Never smoker Exam/Review of Systems Vital Signs Vitals Vital Signs Date Time Temp Pulse Resp B/P Pulse Ox O2 Delivery O2 Flow Rate FiO2 11/27/16 16:54 98.3 83 107/60 MERA MAYNARD MD Nov 27, 2016 18:37
== END 2016-11-27 18:09 | disposition home or self-care (01) ==
LOC: L-D 16:42 → OBT 16:42
PROVIDERS: ATTEND Obstetrics & Gynecology
DX: O42.913 Preterm premature rupture of membranes, unspecified as to length of time between rupture and onset of labor, third trimester (principal); Z3A.30 30 weeks gestation of pregnancy
CPT/HCPCS: 76818; Z7500; G0463

== ENCOUNTER 2016-12-17 19:05 | Outpatient (CLI) | payer MEDICAID ==
[~2016-12-17] VITALS: Ht 152.4 cm; Wt 72.2 kg
[~2016-12-17 19:05] MED LIST changes: -DOCO100C PO
[2016-12-17 19:21] VITALS: BP 101/56; PULSE 85; RESP 17; Ht 152.4 cm; Wt 72.2 kg
[2016-12-17] MEDS ORDERED: CALC600T5 PO (19:24)
[2016-12-17] MEDS ORDERED: PREN1TAB79 PO (19:24)
[2016-12-17] MEDS ORDERED: IRON1TAB78 PO (19:24)
--- NOTE | 2016-12-17 20:02 | RADRPT ---
PROCEDURE: OB ultrasound CLINICAL INDICATION: Decrease movement TECHNIQUE: Multiple transverse and longitudinal OB images of the pelvis were obtained. The images were reviewed on a high-resolution PACS workstation. COMPARISON: 11/27/2016 FINDINGS: A single live intrauterine is seen. The presentation is breech. The placenta is grade 2 a nd posterior in location. No evidence of placenta abruption or previa is seen. The heart rate is 146 beats per minute. The amniotic fluid index is 11.6 cm. movement 2 tone 2 breathing 2 Amniotic fluid 2 IMPRESSION: Biophysical profile of 09/16. RPTAT: HPNM Physician Mehul Date Time Electronically viewed and signed by Physician Mehul on 12/17/2016 20:02 /
--- NOTE | 2016-12-18 02:13 | TRIAGE ---
OB Triage Datetime Report Generated by CPN: 12/18/2016 02:12 Datetime: 12/17/2016 22:05 Stage of : OB Triage Labor Evaluation Frequency: NONE Monitor Mode: External Duration (sec)2399: NONE Resting Tone [place]: Relaxed Heart Rate FHR Baseline Rate: 125-135 Monitor Mode: External US Variability: Moderate 6-25 bpm Accelerations: 15X15 Decelerations: None Category: Category I Datetime: 12/17/2016 21:30 Monitor Mode: External US Datetime: 12/17/2016 21:07 Monitor Mode: External US Comments: LOC D/T PT'S FREQUENT POSITION CHANGE. Datetime: 12/17/2016 21:05 Stage of : OB Triage Labor Evaluation Frequency: NONE Monitor Mode: External Duration (sec)2399: NONE Resting Tone [place]: Relaxed Heart Rate FHR Baseline Rate: 135 Monitor Mode: External US Variability: Moderate 6-25 bpm Accelerations: 15X15 Decelerations: None Category: Category I Datetime: 12/17/2016 20:06 Monitor Mode: External US Datetime: 12/17/2016 19:57 Monitor Mode: External US Comments: PT REPORTED INCREASED MOVEMENT. Datetime: 12/17/2016 19:48 Stage of : OB Triage Labor Evaluation Frequency: NONE Monitor Mode: External Duration (sec)2399: NONE Resting Tone [place]: Relaxed Contraction Comments: ABDOMEN SOFT UPON PALPATION Heart Rate FHR Baseline Rate: 135 Monitor Mode: External US Variability: Moderate 6-25 bpm Accelerations: 15X15 Decelerations: None Category: Category I Datetime: 12/17/2016 19:15 Stage of : OB Triage Datetime: 12/17/2016 19:07 Contraction Comments: APPLIED Comments: APPLIED Datetime: 12/17/2016 19:05 Stage of : OB Triage Assessment Type: Triage Maternal Assessment Level of Consciousness: Fully Conscious DTR's/Clonus: DTRs 2+; No Clonus Headache: Denies Blurred Vision: No Respiratory Effort: Unlabored; Regular Rhythm; Equal Expansion Breath Sounds, Left: Clear and Equal Breath Sounds, Right: Clear and Equal Nausea/Vomiting: Denies RUQ Epigastric Pain: Denies Lower Extremities Edema: None Degree: None Upper Extremities Edema: None Degree: None Facial Edema: None Temperature Route: Oral Fall Risk Assessment History of Falling: (0) No Secondary Diagnosis: (0) No Ambulatory Aid: (0) Bedrest/Nurse Assist IV Therapy: (0) No Gait: (0) Normal/Bedrest/Immobile Mental Status: (0) Oriented to Own Ability Fall Score: 0 Fall Risk Score Definition: No Risk: No action required Pain Assessment Pain Scale: 0 Pain Presence: None/Denies Pain Type: N/A Datetime: 12/17/2016 19:00 Time of Arrival: 12/17/2016 19:00 EGA: 33.5 Arrived By: Wheelchair Arrived From: Home Chief Complaint: DECREASED MOVEMENT SINCE 7AM Movement: Present Contractions: Denies/Absent Vaginal Bleeding: None Patient Complaints: Other Time Provider Notified: 12/17/2016 19:15 Provider Notified: DR. BERNARD Initial Plan: EFM, CALL OB Datetime: 11/27/2016 18:01 Stage of : OB Triage Datetime: 11/27/2016 17:52 Labor Evaluation Frequency: 0 Monitor Mode: External Resting Tone [place]: Relaxed Heart Rate FHR Baseline Rate: 135 Monitor Mode: External US Variability: Moderate 6-25 bpm Accelerations: 10X10 Decelerations: None Category: Category I Pain Assessment Pain Scale: 0 Pain Presence: None/Denies Pain Type: N/A Pain Goal: 3 Pain Relief Measures: Comfort Measures Datetime: 11/27/2016 17:04 Stage of : OB Triage Datetime: 11/27/2016 16:50 Stage of : OB Triage Assessment Type: Triage Maternal Assessment Level of Consciousness: Fully Conscious DTR's/Clonus: DTRs 2+; No Clonus Headache: Denies Blurred Vision: No Respiratory Effort: Unlabored; Regular Rhythm; Equal Expansion Breath Sounds, Left: Clear and Equal Breath Sounds, Right: Clear and Equal Nausea/Vomiting: Denies RUQ Epigastric Pain: Denies Facial Edema: None Temperature Route: Axillary Fall Risk Assessment History of Falling: (0) No Secondary Diagnosis: (0) No Ambulatory Aid: (0) Bedrest/Nurse Assist IV Therapy: (0) No Gait: (0) Normal/Bedrest/Immobile Mental Status: (0) Oriented to Own Ability Fall Score: 0 Fall Risk Score Definition: No Risk: No action required Labor Evaluation Frequency: 0 Monitor Mode: External Resting Tone [place]: Relaxed Heart Rate FHR Baseline Rate: 125 Monitor Mode: External US Variability: Moderate 6-25 bpm Accelerations: 10X10 Decelerations: None Pain Assessment Pain Scale: 0 Pain Presence: None/Denies Pain Type: N/A Pain Goal: 3 Pain Relief Measures: Comfort Measures Datetime: 11/27/2016 16:48 Time of Arrival: 11/27/2016 16:36 EGA: 30.6 Arrived By: Ambulatory Arrived From: Home Chief Complaint: FOLLOW UP LEAKING 2 DAYS AGO, STATES NO MORE LEAKING JUST MUCUS DISCHARGE. DENIE S BLEEDING, OR UC'S Movement: Decreased Contractions: Denies/Absent Rupture of Membranes: Denies Vaginal Bleeding: None Vaginal Discharge: Present Recent Sexual Intercouse: Denies Abdominal Trauma: Not Applicable Patient Complaints: None Time Provider Notified: 11/27/2016 17:04 Provider Notified: [facility] Initial Plan: MONITOR, BPP/MIKE Datetime: 11/25/2016 16:57 EGA: 30.4 Datetime: 11/25/2016 16:38 Fall Score: 0 Fall Risk Score Definition: No Risk: No action required Datetime: 10/04/2016 19:17 Fall Score: 0 Fall Risk Score Definition: No Risk: No action required Datetime: 10/04/2016 18:26 Fall Score: 0 Fall Risk Score Definition: No Risk: No action required Datetime: 10/04/2016 18:24 EGA: 23.1
--- NOTE | 2016-12-18 06:33 | PN ---
Triage Information Date/Time December 18, 2016 Reason for visit: DFHR Weeks of Gestation 33 weeks and 5 days /Para 1 para 0 Diabetes: none Hypertention: none Additional information 26-year-old with IUP at 33 weeks and 5 days presented with complaint of decreased movement. She denies any leaking of fluid, vaginal bleeding or contractions. Objective Vital Signs Date Time Temp Pulse Resp B/P Pulse Ox O2 Delivery O2 Flow Rate FiO2 12/17/16 19:21 98.4 85 17 101/56 Room Air Heart Rate: 130's Contractions: None Exam General appearance: Alert and oriented 4 patient does not appear to be in any acute distress. Abdomen: Soft, gravid, fundal height consistent with gestational age. No abdominal tenderness, no uterine tenderness, no rigidity NST: Category 1 BPP: 09/16 MIKE: 11.6 Results/Medications Imaging Results PROCEDURE: OB ultrasound CLINICAL INDICATION: Decrease movement TECHNIQUE: Multiple transverse and longitudinal OB images of the pelvis were obtained. The images were reviewed on a high-resolution PACS workstation. COMPARISON: 11/27/2016 FINDINGS: A single live intrauterine is seen. The presentation is breech. The placenta is grade 2 and posterior in location. No evidence of placenta abruption or previa is seen. The heart rate is 146 beats per minute. The amniotic fluid index is 11.6 cm. movement 2 tone 2 breathing 2 Amniotic fluid 2 IMPRESSION: Biophysical profile of 09/16. RPTAT: HPNM Disposition: Discharge Assessment/Plan IUP at 33 weeks and 5 days movement testing reassuring DC home Follow-up in 24-48 hours with primary OB Patient was reassured Strict labor precaution and kick count discussed with the patient Patient reports has been feeling movement since she was in triage She verbalized understanding return to triage for any other complaints BITA BERNARD MD Dec 18, 2016 06:33
== END 2016-12-17 22:35 | disposition home or self-care (01) ==
LOC: OBT 19:05 → L-D 19:07 → OBT 22:35
PROVIDERS: ATTEND Obstetrics & Gynecology
DX: O36.8130 Decreased fetal movements, third trimester, not applicable or unspecified (principal); Z3A.33 33 weeks gestation of pregnancy
CPT/HCPCS: 76818; Z7500; G0463

== ENCOUNTER 2017-01-07 08:56 | Outpatient (CLI) | payer MEDICAID ==
[~2017-01-07] VITALS: Ht 154.9 cm; Wt 71.7 kg
[~2017-01-07 08:56] MED LIST changes: +CALC600T5 PO; -FOL8 PO; +PREN1TAB79 PO; -PRENAT PO
[2017-01-07 09:08] VITALS: Ht 154.9 cm; Wt 71.7 kg
[2017-01-07 09:09] VITALS: BP 102/58; PULSE 83; RESP 18
--- NOTE | 2017-01-07 10:54 | RADRPT ---
PROCEDURE: US OB biophysical profile. CLINICAL INDICATION: Leaking amniotic fluid. TECHNIQUE: Multiple sonographic images of the pelvis were obtained. The images were reviewed on a PACS workstation. COMPARISON: December 17, 2016 FINDINGS: There is a single live intrauterine , in breech presentation. A normal heart rate is identified measuring 139 beats per minute. The amniotic fluid index is within normal limits measurin g 9.5 cm. Biophysical profile: movement 2/2 tone 2/2. breathing 2/2 MIKE 2/2 Total 09/16 IMPRESSION: 1. Biophysical profile score of 8/8. 2. Single live intrauterine in breech presentation with normal heart rate of 139 bpm . 3. Normal amniotic fluid index of 9.5 cm. Previously this measured 11.6 cm Physician Anila Date Time Electronically viewed and signed by Physician Anila on 01/07/2017 10:53 MARY/
--- NOTE | 2017-01-07 11:41 | PN ---
Triage Information Date/Time 01/07/2017 Reason for visit: SROM Weeks of Gestation 36 weeks and 5/7 /Para Diabetes: none Hypertention: none Additional information 18-year-old with IUP at Questionable dates . 36 weeks and 5 days care at [facility] presented with complaint of leaking of fluid since 7: 30 AM. Per patient she suspected IUGR. She has an appointment with perinatologist today at 1:30 PM for growth ultrasound due to possible incorrect dating She denied any bleeding or decreased movement. Patient denies any other complaint. Reports occasional low back pain. Objective Vital Signs Date Time Temp Pulse Resp B/P Pulse Ox O2 Delivery O2 Flow Rate FiO2 01/07/17 09:09 98.0 83 18 102/58 96 Room Air Heart Rate: 130's Contractions: >10 Minutes Apart Exam Appearance: Alert and oriented 4. Patient does not appear to be in any acute distress. Abdomen: Soft, gravid, fundal height less than dates. Abdomen no tenderness, no rebound tenderness, no guarding, no rigidity Extremities: No calf tenderness, no click no edema, no cords palpable NST: Category 1 Occasional contraction seen on the monitor Results/Medications Results 24 hrs Laboratory Tests Test 01/07/17 09:20 Membranes Rupture NEGATIVE Disposition: Discharge Assessment/Plan IUP at 36 weeks and 5 days questionable dating, No evidence of PPROM or labor Suspected IUGR Normal MIKE Patient has an appointment for follow-up with perinatologist today for growth ultrasound rule out IUGR as well as appointment in 2 days with her OB clinic Discharge home Follow-up with maternal- medicine today as a scheduled for growth ultrasound rule out IUGR and follow-up plan and management of delivery time if noted to be IUGR. Follow-up with primary OB clinic in 2 days after today's ultrasound Strict labor precaution and kick count discussed Return to clinic as needed She verbalized understanding. all questions were answered BITA BERNARD MD Jan 07, 2017 11:41
--- NOTE | 2017-01-07 11:50 | TRIAGE ---
OB Triage Datetime Report Generated by CPN: 01/07/2017 11:50 Datetime: 01/07/2017 11:00 Stage of : OB Triage Maternal Assessment Level of Consciousness: Fully Conscious Labor Evaluation Frequency: 1UC/HR Monitor Mode: External Duration (sec)2399: 70 Quality: Mild Resting Tone [place]: Relaxed Heart Rate FHR Baseline Rate: 135 Monitor Mode: External US Variability: Moderate 6-25 bpm Accelerations: 15X15 Decelerations: None Pain Assessment Pain Scale: 0 Pain Goal: 3 Membrane Status: Intact Vaginal Bleeding: None Datetime: 01/07/2017 10:00 Stage of : OB Triage Maternal Assessment Level of Consciousness: Fully Conscious Labor Evaluation Frequency: NONE Monitor Mode: External Resting Tone [place]: Relaxed Heart Rate FHR Baseline Rate: 135 Monitor Mode: External US Variability: Moderate 6-25 bpm Accelerations: 15X15 Decelerations: None Category: Category I Pain Assessment Pain Scale: 0 Pain Goal: 3 Membrane Status: Intact Vaginal Bleeding: None Datetime: 01/07/2017 09:20 Vaginal Exam Dilatation (cms): 1.5 Effacement (%): 50 Station: -2 Exam By: MOISES Vaginal Bleeding: Scant Pool: Negative Nitrazine: Negative Cervix, Consistency: Moderate Cervix, Position: Midposition Datetime: 01/07/2017 09:05 Monitor Mode: External Monitor Mode: External US Datetime: 01/07/2017 09:02 Assessment Type: Triage Maternal Assessment Level of Consciousness: Fully Conscious DTR's/Clonus: DTRs 2+; No Clonus Headache: Denies Blurred Vision: No Respiratory Effort: Unlabored; Regular Rhythm; Equal Expansion Breath Sounds, Left: Clear and Equal Breath Sounds, Right: Clear and Equal Nausea/Vomiting: Denies RUQ Epigastric Pain: Denies Lower Extremities Edema: None Degree: None Upper Extremities Edema: None Degree: None Facial Edema: None Fall Risk Assessment History of Falling: (0) No Secondary Diagnosis: (0) No Ambulatory Aid: (0) Bedrest/Nurse Assist IV Therapy: (0) No Gait: (0) Normal/Bedrest/Immobile Mental Status: (0) Oriented to Own Ability Fall Score: 0 Fall Risk Score Definition: No Risk: No action required Datetime: 01/07/2017 09:00 Time of Arrival: 01/07/2017 08:51 EGA: 36.5 Arrived By: Ambulatory Arrived From: Home Chief Complaint: PT HERE C/O LEAKING Movement: Present Contractions: Irregular Rupture of Membranes: Unsure Vaginal Bleeding: None Abdominal Trauma: Not Applicable Patient Complaints: Cramping; Back Pain Time Provider Notified: 01/07/2017 08:59 Provider Notified: [facility] Initial Plan: SVE/ROM PLUS/NITRAZINE/STERILE SPEC./ Datetime: 12/17/2016 19:05 Fall Score: 0 Fall Risk Score Definition: No Risk: No action required Datetime: 12/17/2016 19:00 EGA: 33.5 Datetime: 11/27/2016 16:50 Fall Score: 0 Fall Risk Score Definition: No Risk: No action required Datetime: 11/27/2016 16:48 EGA: 30.6 Datetime: 11/25/2016 16:57 EGA: 30.4 Datetime: 11/25/2016 16:38 Fall Score: 0 Fall Risk Score Definition: No Risk: No action required Datetime: 10/04/2016 19:17 Fall Score: 0 Fall Risk Score Definition: No Risk: No action required Datetime: 10/04/2016 18:26 Fall Score: 0 Fall Risk Score Definition: No Risk: No action required Datetime: 10/04/2016 18:24 EGA: 23.1
== END 2017-01-07 12:00 | disposition home or self-care (01) ==
LOC: OBT 08:56 → L-D 08:56 → OBT 12:00
PROVIDERS: ATTEND Obstetrics & Gynecology
DX: O36.5931 Maternal care for other known or suspected poor fetal growth, third trimester, fetus 1 (principal); Z3A.36 36 weeks gestation of pregnancy
CPT/HCPCS: 76818; 84112; Z7500; G0463

== ENCOUNTER 2017-01-07 14:53 | Inpatient (IN) | payer MEDICAID ==
[~2017-01-07] VITALS: Ht 154.9 cm; Wt 77.7 kg
[2017-01-07] MEDS ORDERED: LACTATED RINGER'S 1,000 ML IV PRN (16:30)
[2017-01-07] MEDS ORDERED: CARBOPROST 250 MCG INJ IM PRN ×2 (17:00→18:00)
[2017-01-07] MEDS ORDERED: IBUPROFEN 600 MG TAB PO PRN (17:00)
[2017-01-07] MEDS ORDERED: METHYLERGONOVINE 0.2 MG INJ IM PRN ×2 (17:00→18:00)
[2017-01-07] MEDS ORDERED: OXYTOCIN 30 UNITS/LR 500 ML IV SCH ×2 (17:00)
[2017-01-07] MEDS ORDERED: LIDOCAINE 1% (MPF) 30 ML INJ INJ PRN (17:00)
[2017-01-07] MEDS ORDERED: OXYTOCIN 30 UNITS/LR 500 ML IV PRN ×2 (17:00→18:00)
[2017-01-07] MEDS ORDERED: MISOPROSTOL 200 MCG TAB PR PRN ×2 (17:00→18:00)
[2017-01-07] MEDS ORDERED: AMPICILLIN 2 GM/NS (PMX) 100 ML IV ONE (17:00)
[2017-01-07] MEDS ORDERED: BUTORPHANOL 2 MG INJ IV PRN (17:00)
[2017-01-07 17:17] LABS: BASOPHILS % 0.2 % (0.0-2.0); EOSINOPHILS # 0.1 10^3/ul (0.0-0.5); EOSINOPHILS % 0.6 % (0.0-7.0); HEMATOCRIT 33.6 % (37.0-47.0); HEMOGLOBIN 11.8 g/dl (12.0-16.0); LYMPHOCYTES # 1.6 10^3/ul (0.8-2.9); LYMPHOCYTES % 15.4 % (15.0-51.0); MEAN CORPUSCULAR HEMOGLOBIN 32.2 pg (29.0-33.0); MEAN CORPUSCULAR HGB CONC 35.1 g/dl (32.0-37.0); MEAN CORPUSCULAR VOLUME 91.6 fl (82.0-101.0); MEAN PLATELET VOLUME 12.6 fl (7.4-10.4); MONOCYTE # 0.9 10^3/ul (0.3-0.9); MONOCYTES % 8.4 % (0.0-11.0); NEUTROPHIL # 7.8 10^3/ul (1.6-7.5); NEUTROPHILS % 74.8 % (39.0-77.0); PLATELET COUNT 156 10^3/UL (140-415); RED BLOOD COUNT 3.67 10^6/ul (4.20-5.40); RED CELL DISTRIBUTION WIDTH 13.1 % (11.5-14.5); WHITE BLOOD COUNT 10.4 10^3/ul (4.8-10.8)
--- NOTE | 2017-01-07 17:30 | RADRPT ---
PROCEDURE: US evaluation of position. CLINICAL INDICATION: Uncertain position. TECHNIQUE: Multiple sonographic images of the gravid uterus were obtained utilizing mclean-scale matthew ging. Sagittal and transverse images were obtained. The images were reviewed on a PACS workstation . The position was determined. COMPARISON: No prior studies are available for comparison. FINDINGS: There is a single live intrauterine . heart rate is 136 beats per minute. Position is breech and placenta is posterior grade II with no abruption or previa. There is no placenta previa or abruption. IMPRESSION: 1. position is breech. RPTAT: QQ .Edi Cronin MD, MD Date Time Electronically viewed and signed by .Edi Cronin MD, on 01/07/2017 17:30 .R/
[2017-01-07 17:31] LABS: INR 0.91; PROTIME 12.2 Sec (12.2-14.2)
[2017-01-07 17:32] LABS: PARTIAL THROMBOPLASTIN TIME 28.6 Sec (25.0-35.0)
[2017-01-07] MEDS ORDERED: CEFAZOLIN 2 GM/50 ML (PMX) 50 ML IV SCH (18:00)
[2017-01-07] MEDS: LACTATED RINGER'S 1,000 ML IV SCH (18:08)
[2017-01-07] MEDS ORDERED: morphine SULFATE/PF (10 MG/10 ML) INJ ONE (18:11)
[2017-01-07] MEDS ORDERED: FENTAnyl 50 MCG/ML VIAL ONE (18:12)
[2017-01-07] MEDS ORDERED: ONDANSETRON 4 MG INJ ONE (18:16)
[2017-01-07] MEDS ORDERED: PHENYLephrine (100 MCG/ML) 5ML SYG ONE (18:16)
[2017-01-07] MEDS ORDERED: DEXAMETHASONE 4 MG/ML 1 ML INJ ONE (18:16)
[2017-01-07] MEDS ORDERED: DIPHENHYDRAMINE 50 MG INJ IV PRN (18:30)
[2017-01-07] MEDS ORDERED: morphine 4 MG/ML VIAL IV PRN (18:30)
[2017-01-07] MEDS ORDERED: ONDANSETRON 4 MG INJ IV PRN (18:30)
[2017-01-07] MEDS ORDERED: morphine 2 MG INJ IV PRN (18:30)
[2017-01-07] MEDS ORDERED: NALOXONE (0.4 MG/ML) INJ IV PRN (18:30)
[2017-01-07] MEDS ORDERED: ZOLPIDEM 5 MG TAB PO PRN (18:30)
--- NOTE | 2017-01-07 20:09 | HP ---
Date/Time of Note Date/Time of Note DATE: 01/07/17 TIME: 20:00 OB - History Hx of Present Free Text/Dictation 5 years old female EDC January 30, 2017 admitted to [facility] referred from perinatology clinic with the diagnosis of no MIKE, breech presentation suspected IUGR perinatologist recommended delivery patient is being prepared to undergo primary section due to breech presentation 0 MIKE and IUGR Chief Complaint: 36 weeks and 5 days suspected IUGR amniotic fluid index 0 Estimated Due Date: Jan 30, 2017 : 1 Para: 0 Care: Limited Care Ultrasounds: Normal mid trimester US, Other (Ultrasound of January 07 consistent with IUGR no amniotic fluid breech presentation) Obstetrical Complications: None Medical Complications: None Past Family/Social History * Past Medical, Surgical, Family and Obstetric Histories reviewed from chart. RPR/VDRL: Negative GBS Status: Negative HBsAG: Negative OB Admission Exam Physical Exam Heart: Rhythm Normal Lungs: Clear, Equal Abdomen: WNL Extremities: Normal Reflexes: Normal Cervical Dilatation: None Station: Other (Breech presentation) Membranes: Intact Heart Rate: 130's Accelerations: Accelerations Present Decelerations: Variable Decelerations Varibility: Moderate Intensity: Mild Last 72 hours Lab Results CBC & BMP 01/07/17 15:20 JAQUI SERRANO MD Jan 07, 2017 20:09
--- NOTE | 2017-01-07 20:17 | OPR ---
Operative Report Planned Procedure Free Text/Dictation 36 weeks 5 days complicated with IUGR 0 MIKE breech presentation perinatologist recommended delivery Procedure date Jan 07, 2017 Procedure(s) Primary Performed by see signature line Health Practice Manager DR JOANA SUNSHINE Anesthesiologist: LAISHA HUIZAR Pre-procedure diagnosis 36 weeks 5 days complicated with breech presentation IUGR no MIKE Anesthesia Type: spinal Post-Procedure Post-procedure diagnosis 36 weeks 5 days complicated with IUGR breech presentation 0 MIKE Findings Live Baby boy 9 and 9 Estimated Blood Loss: 600 - 700 mls Specimen(s) none Grafts/Implant(s) none Complication(s) none Pt Condition post procedure: stable Procedure Description Under satisfactory spinal anesthesia patient prepped and draped and placed in supine position. Pfannenstiel incision was made. Incision carried through the subcutaneous tissue. Fascia incised to the length of incision. Rectus muscle divided in midline. Peritoneum exposed and entered to a vertical incision. Exploration of abdomen revealed [gravid uterus at term normal-appearing tubes and ovaries.] Bladder flap was developed. Transverse incision was made in the lower segment of the uterus. Amniotic sac ruptured, [clear amniotic fluid noted. ] Live baby boy was delivered from robert breech presentation by assisted breech extraction. Shoulders delivered without any difficulty head delivered with Mauriceau maneuver Naso oropharyngeal suction was performed. Baby handed to the team for immediate attention. Patient received 20 units of Pitocin. Placenta delivered manually intact. Uterine cavity cleaned with a wet sponge and drainage established. Uterus closed in 2 layers using Monocryl #1 in continuous fashion. Peritoneal cavity irrigated with warm saline. Sponge needle instrument reported to be correct. Abdominal peritoneum closed with 2-0 chromic catgut continuously. Fascia closed with #1 PDS in a continuous fashion. Subcutaneous tissue irrigated with warm saline and approximated with 2-0 chromic catgut skin closed with N sorb estimated blood loss [600 cc]. Urine bag containing [200] mL of [clear] urine. Patient tolerated procedure well and transferred to recovery room in good condition. JAQUI SERRANO MD Jan 07, 2017 20:17
[2017-01-07] MEDS ORDERED: AMPICILLIN 1 GM/NS (PMX) 50 ML IV SCH (21:00)
[2017-01-07] MEDS: KETOROLAC 30 MG INJ IV PRN (23:12)
[2017-01-07 23:30] VITALS: BP 112/69; PULSE 71; RESP 18
[2017-01-08] VITALS: BP_SYST 112; PULSE 72; RESP 16
[2017-01-08] MEDS: SENNA/DOCUSATE NA (8.6MG/50MG) TAB PO SCH ×3 (00:30→21:30)
[2017-01-08] MEDS ORDERED: CARBOPROST 250 MCG INJ IM PRN (00:30)
[2017-01-08] MEDS ORDERED: METHYLERGONOVINE 0.2 MG INJ IM PRN (00:30)
[2017-01-08] MEDS ORDERED: CEFAZOLIN 1 GM/50 ML (PMX) 50 ML IVPB SCH (00:30)
[2017-01-08] MEDS ORDERED: OXYTOCIN 30 UNITS/LR 500 ML IV PRN (00:30)
[2017-01-08] MEDS ORDERED: LANOLIN 7 GM TUBE TOP PRN (00:30)
[2017-01-08] MEDS ORDERED: MISOPROSTOL 200 MCG TAB PR PRN (00:30)
[2017-01-08] MEDS: OXYTOCIN 30 UNITS/LR 500 ML IV SCH ×3 (01:08→08:30)
[2017-01-08 04:10] VITALS: BP 103/57; PULSE 74; RESP 16
[2017-01-08] MEDS: LACTATED RINGER'S 1,000 ML IV SCH ×3 (05:14→16:32)
[2017-01-08 08:30] VITALS: BP 95/53; PULSE 74; RESP 16
[2017-01-08 09:44] LABS: BASOPHILS % 0.1 % (0.0-2.0); EOSINOPHILS % 0.1 % (0.0-7.0); HEMATOCRIT 29.3 % (37.0-47.0); LYMPHOCYTES % 14.4 % (15.0-51.0); MEAN CORPUSCULAR HEMOGLOBIN 31.2 pg (29.0-33.0); MEAN CORPUSCULAR HGB CONC 34.1 g/dl (32.0-37.0); MEAN CORPUSCULAR VOLUME 91.3 fl (82.0-101.0); MONOCYTE # 0.8 10^3/ul (0.3-0.9); MONOCYTES % 5.5 % (0.0-11.0); NEUTROPHILS % 79.2 % (39.0-77.0); PLATELET COUNT 140 10^3/UL (140-415); RED BLOOD COUNT 3.21 10^6/ul (4.20-5.40); RED CELL DISTRIBUTION WIDTH 12.9 % (11.5-14.5); WHITE BLOOD COUNT 13.9 10^3/ul (4.8-10.8)
[2017-01-08 12:30] VITALS: BP 91/51; PULSE 75; RESP 16
[2017-01-08 16:00] VITALS: BP 98/58; PULSE 77; RESP 16
[2017-01-08] MEDS: KETOROLAC 30 MG INJ IV PRN (16:02)
[2017-01-08] MEDS ORDERED: OXYCODONE/ACETAMINOPHEN (5/325) TAB PO PRN ×2 (18:30)
[2017-01-08] MEDS ORDERED: HYDROCODONE/APAP (5/325) TAB PO PRN ×2 (18:30)
--- NOTE | 2017-01-08 18:50 | PN ---
Date/Time of Note Date/Time of Note DATE: 01/08/17 TIME: 18:49 OB Subjective Subjective Subjective Post C section day 1 Doing Well Afebrile Ambulatory Chest Clear Breasts are soft , Nipples are intact Abdomen is soft Fundus is firm Moderate amount of lochia Incision is clean ,No evidence of infection No calf tenderness No ankle edema Laboratory Tests Test 01/08/17 09:20 White Blood Count 13.910^3/ul Red Blood Count 3.2110^6/ul Hemoglobin 10.0g/dl Hematocrit 29.3% Mean Corpuscular Volume 91.3fl Mean Corpuscular Hemoglobin 31.2pg Mean Corpuscular Hemoglobin Concent 34.1g/dl Red Cell Distribution Width 12.9% Platelet Count 49282^3/UL Mean Platelet Volume 12.0fl Neutrophils % 79.2% Lymphocytes % 14.4% Monocytes % 5.5% Eosinophils % 0.1% Basophils % 0.1% Nucleated Red Blood Cells % 0.0/100WBC Neutrophils # 11.010^3/ul Lymphocytes # 2.010^3/ul Monocytes # 0.810^3/ul Eosinophils # 0.010^3/ul Basophils # 0.010^3/ul Nucleated Red Blood Cells # 0.010^3/ul Current Medications Medications (Trade) Dose Ordered Sig/Johana Route PRN Reason Start Time Stop Time Status Last Admin Dose Admin Lactated Ringer's 1,000 ml @ 125 mls/hr Q8H IV 01/07/17 16:32 01/08/17 13:05 Ampicillin 100 ml @ 100 mls/hr ONCE ONCE IV 01/07/17 17:00 01/08/17 13:48 DC 01/07/17 17:06 Ampicillin (Ampicillin 1 Gm/ NS (Pmx)) 50 ml @ 100 mls/hr Q4H IV 01/07/17 21:00 01/08/17 00:37 DC Butorphanol Tartrate (Stadol) 2 mg Q2H PRN IV PAIN 01/07/17 17:00 01/08/17 00:37 DC Lidocaine 30 ml 30 ml ONCE PRN INJ EPISIOTOMY/TEARING 01/07/17 17:00 01/08/17 00:37 DC Oxytocin/Lactated Ringer's 500 ml @ 125 mls/hr ONCE -MAY REPEAT X1 IV 01/07/17 17:00 01/08/17 13:48 DC 01/07/17 20:53 Oxytocin/Lactated Ringer's 500 ml @ 125 mls/hr ONCE IV 01/07/17 17:00 01/08/17 00:37 DC Ibuprofen 600 mg 600 mg ONCE PRN PO Mild Pain (Pain Score 1-3) 01/07/17 17:00 01/08/17 00:37 DC Lactated Ringer's 1,000 ml @ 2,000 mls/hr Q30M PRN IV PRE-EPIDURAL BOLUS 01/07/17 16:30 01/08/17 00:37 DC Oxytocin/Lactated Ringer's 500 ml @ 0 mls/hr ONCE PRN IV For Hemorrhage Management 01/07/17 17:00 01/07/17 17:50 DC Methylergonovine Maleate (Methergine) 0.2 mg ONCE PRN IM VAGINAL BLEEDING 01/07/17 17:00 01/07/17 17:50 DC Carboprost Tromethamine (Hemabate) 250 mcg ONCE PRN IM VAGINAL BLEEDING 01/07/17 17:00 01/07/17 17:50 DC Misoprostol 1000 mcg 1,000 mcg ONCE PRN VT VAGINAL BLEEDING 01/07/17 17:00 01/07/17 17:50 DC Cefazolin Sodium/ Dextrose 50 ml @ 100 mls/hr ONCE IV 01/07/17 18:00 01/08/17 00:37 DC Oxytocin/Lactated Ringer's 500 ml @ 0 mls/hr ONCE PRN IV For Hemorrhage Management 01/07/17 18:00 01/08/17 00:37 DC Methylergonovine Maleate (Methergine) 0.2 mg ONCE PRN IM VAGINAL BLEEDING 01/07/17 18:00 Carboprost Tromethamine (Hemabate) 250 mcg ONCE PRN IM VAGINAL BLEEDING 01/07/17 18:00 01/08/17 00:37 DC Misoprostol (Cytotec) 1,000 mcg ONCE PRN VT VAGINAL BLEEDING 01/07/17 18:00 01/08/17 00:37 DC Morphine Sulfate (Duramorph) 10 mg STK-MED ONCE .ROUTE 01/07/17 18:11 01/07/17 18:12 DC Fentanyl (Sublimaze) 100 mcg STK-MED ONCE .ROUTE 01/07/17 18:12 01/07/17 18:13 DC Phenylephrine HCl (Osiel-Synephrine Inj Syg) 500 mcg STK-MED ONCE .ROUTE 01/07/17 18:16 01/07/17 18:17 DC Dexamethasone (Decadron) 4 mg STK-MED ONCE .ROUTE 01/07/17 18:16 01/07/17 18:17 DC Ondansetron HCl (Zofran Inj) 4 mg STK-MED ONCE .ROUTE 01/07/17 18:16 01/07/17 18:17 DC Naloxone HCl (Narcan) 0.1 mg Q2M PRN IV FOR RESP RATE 8 OR LESS 01/07/17 18:30 01/08/17 18:29 DC Ketorolac Tromethamine (Toradol) 30 mg Q6H PRN IV PAIN 01/07/17 18:30 01/08/17 18:29 DC 01/08/17 16:02 Morphine Sulfate (morphine) 2 mg Q3H PRN IV PAIN LEVEL 1-5 01/07/17 18:30 01/08/17 18:29 DC Morphine Sulfate (morphine) 4 mg Q3H PRN IV PAIN LEVEL 6-10 01/07/17 18:30 01/08/17 18:29 DC Diphenhydramine HCl (Benadryl) 25 mg Q6H PRN IV ITCHING 01/07/17 18:30 01/08/17 18:29 DC Ondansetron HCl (Zofran Inj) 4 mg Q6H PRN IV NAUSEA AND/OR VOMITING 01/07/17 18:30 01/08/17 18:29 DC Zolpidem Tartrate (Ambien) 5 mg HS MAY REPEAT X 1 PRN PO INSOMNIA 01/07/17 18:30 01/08/17 18:29 DC Miscellaneous Information (* Miscellaneous Pharmacy Order) Duramorph: .2 mg Spi... GIVEN XX 01/07/17 18:30 Acetaminophen/ Hydrocodone Bitart ([place]well (5/325)) 1 tab Q4H PRN PO PAIN LEVEL 4-6 01/08/17 18:30 Acetaminophen/ Hydrocodone Bitart (Blackwell (5/325)) 2 tab Q4H PRN PO PAIN LEVEL 7-10 01/08/17 18:30 Oxycodone/ Acetaminophen (Percocet (5/ 325)) 1 tab Q4H PRN PO PAIN LEVEL 4-6 01/08/17 18:30 Oxycodone/ Acetaminophen (Percocet (5/ 325)) 2 tab Q4H PRN PO PAIN LEVEL 7-10 01/08/17 18:30 Ibuprofen (Motrin) 600 mg Q6 PO 01/09/17 00:00 Simethicone (Mylicon) 160 mg Q8H PRN PO DISTENSION/GAS/BLOATING 01/08/17 00:30 Senna/Docusate Sodium (Senokot-S) 1 tab BID PO 01/08/17 00:30 01/08/17 08:55 Lanolin ([id number]) 1 applic BEDSIDE MEDICATION PRN TOP BEDSIDE FOR RADHA TO NIPPLES 01/08/17 00:30 Diphtheria/ Tetanus/Acell Pertussis 0.5 ml 0.5 ml ONCE ONCE IM* 01/10/17 09:00 01/10/17 09:01 Oxytocin/Lactated Ringer's 500 ml @ 0 mls/hr ONCE PRN IV For Hemorrhage Management 01/08/17 00:30 Methylergonovine Maleate (Methergine) 0.2 mg ONCE PRN IM VAGINAL BLEEDING 01/08/17 00:30 Carboprost Tromethamine (Hemabate) 250 mcg ONCE PRN IM VAGINAL BLEEDING 01/08/17 00:30 Misoprostol 1000 mcg 1,000 mcg ONCE PRN VT VAGINAL BLEEDING 01/08/17 00:30 Cefazolin Sodium 50 ml @ 100 mls/hr ONCE IVPB 01/08/17 00:30 01/08/17 00:59 DC 01/08/17 01:13 Oxytocin/Lactated Ringer's 500 ml @ 125 mls/hr Q4H IV 01/08/17 00:30 01/08/17 13:48 DC 01/08/17 01:08 Influenza Virus Vaccine (Fluzone) 0.5 ml ONCE ONCE IM* 01/09/17 09:00 01/09/17 09:01 New born is doing well, Breast feeding MERA MAYNARD MD Jan 08, 2017 18:50
[2017-01-08 20:00] VITALS: BP 91/54; PULSE 82; RESP 20
[2017-01-08] MEDS: IBUPROFEN 600 MG TAB PO SCH (23:35)
[2017-01-09] MEDS: LACTATED RINGER'S 1,000 ML IV SCH ×2 (00:32→08:32)
[2017-01-09 03:19] VITALS: BP 104/68; PULSE 70; RESP 20
[2017-01-09] MEDS: IBUPROFEN 600 MG TAB PO SCH ×4 (05:21→23:58)
[2017-01-09 09:00] VITALS: BP 103/60; PULSE 70; RESP 18
[2017-01-09] MEDS ORDERED: INFLUENZA VIRUS VACCINE 0.5 ML (DISPENSING) IM* ONE (09:00)
[2017-01-09] MEDS: SENNA/DOCUSATE NA (8.6MG/50MG) TAB PO SCH ×2 (09:02→21:00)
--- NOTE | 2017-01-09 09:51 | QN ---
Documentation Comment Post day 2, abdomen soft, incision dry, bowel sounds present, patient able to pass flatus, no bowel movement, extremities normal, fleets enema recommended JAQUI SERRANO MD Jan 09, 2017 09:51
[2017-01-09] MEDS ORDERED: NA PHOSPHATE/BIPHOS 133 ML ENEMA PR ONE (11:00)
[2017-01-09 20:50] VITALS: BP 101/57; PULSE 82; RESP 18
[2017-01-10 04:00] VITALS: BP 98/56; PULSE 73; RESP 18
[2017-01-10] MEDS: IBUPROFEN 600 MG TAB PO SCH ×2 (06:02→12:39)
[2017-01-10 08:30] VITALS: BP 105/63; PULSE 94; RESP 18
[2017-01-10] MEDS ORDERED: DIPHTH/TET/ACEL PERTUSS (ADULT) 0.5 ML VIAL IM* ONE (09:00)
[2017-01-10] MEDS: SENNA/DOCUSATE NA (8.6MG/50MG) TAB PO SCH (09:00)
--- NOTE | 2017-01-10 10:36 | PD.PPDC ---
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
--- NOTE | 2017-01-10 10:38 | DS ---
Date/Time of Note Date/Time of Note DATE: 01/10/17 TIME: 10:37 Discharge Summary Admission/Discharge Info Admit Date/Time Jan 07, 2017 at 14:53 Discharge Date/Time January 10, 2017 at 10:30 AM Discharge Diagnosis Post day 3 Patient Condition: Good Procedures Primary due to breech presentation Hx of Present Illness Term breech presentation Hospital Course Satisfactory recovery uneventful Home Meds Reported Medications Calcium Carbonate (CALCIUM) 600 Mg Tablet, 600 MG PO, TAB 12/17/16 Vit W-Ca,Fe,FA(<1 mg) ( Vitamins) 1 Each Tablet, 1 EACH PO, TAB 12/17/16 Ferrous Gluconate (Iron) 256 Mg Tablet, 256 MG PO DAILY, TAB 11/25/16 Follow-up Plan Post instructions given recommended to make appointment to be seen at the clinic in 1 week Primary Care Provider Care Physician No Primary Time spent on discharge: < 30 minutes JAQUI SERRANO MD Jan 10, 2017 10:38
== END 2017-01-10 13:55 | disposition home or self-care (01) | DRG 766 ==
LOC: L-D 14:53 → PP1 01-08 00:10
PROVIDERS: ADMIT Obstetrics & Gynecology; ATTEND Obstetrics & Gynecology
PROC: 3E033VJ Introduction of Other Hormone into Peripheral Vein, Percutaneous Approach (ICD-10-PCS; 2017-01-07)
PROC: 10D00Z1 Extraction of Products of Conception, Low, Open Approach (ICD-10-PCS; principal; 2017-01-07 19:30)
DX: O60.14X0 Preterm labor third trimester with preterm delivery third trimester, not applicable or unspecified (principal); O32.1XX0 Maternal care for breech presentation, not applicable or unspecified; Z3A.36 36 weeks gestation of pregnancy; Z37.0 Single live birth
CPT/HCPCS: 76815; 76816; 76818; 84112; 85025; 85610; 85730; 86592; 86885; 86900; 86901; 88307; 90686; 90715; 94760; 99464; G0463; J0290; J0690; J1100; J1885; J2274; J2370; J2405; J2590; J3010; J7120